=== PATIENT | male | born 1975 | race Caucasian/White ===

== ENCOUNTER 2025-03-12 08:44 | Inpatient (IN) | payer BC ==
--- OUTSIDE RECORDS SUMMARY | 2025-03-12 08:47 | XMS REPORT | Continuity of Care Document ---
Author Name Unknown Address [address] [facility] [place] [address] [facility] [email or web address] Address [address] [facility] [facility] [place] [address] Care Team Providers Care Private Household Worker Name Role Phone PCP, PATIENT DOES NOT HAVE A Primary Care Physic keith Unavailable RADIOLOGY Attending Clinician Unavailable Kev Fitzpatrick MD Attending Clinician + [phone] Pcp, Patient Does Not Have A Attending Clinician [facility] Sleep Lab Attending Clinician Jad Kimbrough MD Attending Clinician [phone] JAD CID Attending Clinician UnavailJAD Torres Attending Clinician UnavailKev Santos MD Attending Clinician + [phone] KEV FITZPATRICK Attending Clinician TRACEE Mak Attending Clinician Unavailable TRACEE FLOWER Attending Clinician Unavailable MILLY Attending Clinician Unavailable JOSIAH GARCIA Admitting Clinician Unavailable TRACEE FLOWER Admitting Clinician Unavailable MILLY Admitting Clinician Unavailable Payers Payer Name Policy Type Policy Number Effective Date Expirati on Date Source [facility] [id number] 2021 00:00:00 [place] [id number] 2021 00:00:00 Problems Condition Name Condition Details Condition Category Status Onset Date Resolution Date Last Treatment Date Treating Clinician Comments Source Poison malcolm dermatitis Poison malcolm dermatitis Diagnosis Active [facility] Essential hypertensi on Essential hypertensi on Problem Active [facility] Allergies, Adverse Reactions, Alerts Allergy Name Allergy Type Status Severity Reaction(s) Onset Date Inactive Date Treating Clinician Comments Source NO KNOWN ALLERGIE S Drug Class Active [facility] Social History Social Habit Start Date Stop Date Quantity Comments Source History of tobacco use Snuff User [facility] Tobacco use and exposure 2024-02-25 00:00:00 2024-02-25 00:00:00 User of smokeless tobacco [facility] Alcoholic beverage intake 2024-02-25 00:00:00 2024-02-25 00:00:00 Ex-drinker (finding) [facility] History of Social function 2024-02-25 00:00:00 2024-02-25 00:00:00 [facility] Sex assigned at 1975 00:00:00 1975 00:00:00 [facility] Smoking Status Start Date Stop Date Source Never smoked tobacco [facility] Medications Ordered Medication Name Filled Medication Name Start Date Stop Date Current Medication? Ordering Clinician Indication Dosage Frequency Signature (SIG) Comments Components Source iopamidol (ISOVUE 370-500 mL) injection 85 mL 02-10 17:00: 00 02-10 16:14 :00 No [id number] 85mL 85 mL, Intravenou s, ONCE, 1 dose, On Sun02/10/25 at 1200, Routine [facility] varenicline (CHANTIX STARTING MONTH BOX) 0.5 mg (11)- 1 mg (42) tablet 02-24 00:00: 00 Yes [id number] Take one 0.5mg tab by mouth once daily for 3 days, then one 0.5mg tab twice daily for 4 days, then one 1mg tab twice daily. [facility] amLODIPine 5 mg tablet 02-24 00:00: 00 Yes [id number] 5mg Take 1 tablet by mouth in the morning. [facility] iopamidol (ISOVUE 370-500 mL) injection 100 mL 02-02 09:45: 00 02-02 09:45 :00 No [id number] 100mL 100 mL, Intravenou s, ONCE, 1 dose, On 02/03/24 at 0445, Routine [facility] ketorolac (TORADOL) injection 30 mg 02-02 08:30: 00 02-02 07:31 :00 No 30mg 30 mg, Slow IV Push, ONCE, 1 dose, On Sun02/03/24 at 0330, Routine [facility] diphenhydrA MINE:lidoca ine 2% viscous:maa lox 1:1:1 (FIRST-MOUT HWASH BLM) oral suspension 15 mL 02-02 07:30: 00 02-02 07:31 :00 No 15mL 15 mL, Oral, ONCE, 1 dose, On 02/03/24 at 0230, Routine [facility] dicyclomine 20 mg tablet 02-02 00:00: 00 Yes [id number] 20mg Take 1 tablet by mouth every 6 (six) hours as needed for Abdominal pain. [facility] ondansetron (ZOFRAN) 4 mg tablet 02-02 00:00: 00 Yes [id number] 4mg Take 1 tablet by mouth every 8 (eight) hours as needed for Nausea and Vomiting (N/V). [facility] lisinopriL 40 mg tablet 10-11 00:00: 00 Yes [id number] 40mg Take 1 tablet by mouth daily. [facility] MethylPREDN ISolone MethylPREDN ISolone 2018-07 00:00: 00 Yes Anthony Francois 1 tablet with food or milk [facility] Lisinopril Lisinopril Yes Anthony Francois 1 tablet [facility] Vital Signs Vital Name Observation Time Observation Value Comments Kelly turner Systolic blood pressure 2024-02-25 19:17:00 159 mm[Hg] [facility] Diastolic blood pressure 2024-02-25 19:17:00 99 mm[Hg] [facility] Heart rate 2024-02-25 19:13:00 91 /min [facility] acute hospital Body temperature 2024-02-25 19:13:00 36.94 Sharda [facility] Body weight 2024-02-25 19:13:[address] [facility] BMI 2024-02-25 19:13:00 35.15 kg/m2 [facility] Systolic blood pressure 2024-02-03 09:55:00 139 mm[Hg] [facility] Diastolic blood pressure 2024-02-03 09:55:00 94 mm[Hg] [facility] Heart rate 2024-02-03 09:55:00 67 /min General acute hospital Body temperature 2024-02-03 09:55:00 36.72 Sharda [facility] Respiratory rate 2024-02-03 09:55:00 18 /min [facility] Oxygen saturation in Arterial blood by Pulse oximetry 2024-02-03 09:55:00 97 /min [facility] Body height 2024-02-03 07:02:[address] [facility] Body weight 2024-02-03 07:02:[address] [facility] BMI 2024-02-03 07:02:00 33.47 kg/m2 [facility] Procedures Procedure Date / Time Performed Performing Clinicia n Source CT ABDOMEN PELVIS W CONTRAST 2025-02-10 16:13:33 Requisition, Paper [facility] HB CREATININE SERUM/BLOOD FOR IMAGING 2025-02-10 15:59:00 Radiology [facility] SLEEP STUDY DATA REPORT 2024-03-04 19:48:37 Kev Fitzpatrick [facility] SLEEP LAB RESULTS 2024-03-04 19:47:33 Kev Fitzpatrick [facility] EKG-12 LEAD 2024-02-03 09:37:07 Tracee Flower [facility] URINALYSIS 2024-02-03 08:12:00 Tracee Flower [facility] COMP. METABOLIC PANEL (52156) 2024-02-03 07:12:00 Tracee Flower [facility] CBC WITH DIFF 2024-02-03 07:12:00 Tracee Flower [facility] LIPASE 2024-02-03 07:12:[address] [facility] Encounters Start Date/Time End Date/Time Encounter Type Admission Type Attending Clinicians Care Facility Care Department Encounter ID Source 2025-02-10 10:43:36 2025-02-10 23:59:00 Hospital Encounter R RADIOLOGY [facility] [id number] 350.1.13.10 [id number] [id number] [facility] 2024-03-04 00:00:00 2024-09-13 07:11:30 Orders Only Kev Fitzpatrick [facility] ([facility]) [id number] 350.1.13.10 [id number] [id number] [facility] 2024-03-04 00:00:00 2024-09-13 07:11:20 Orders Only Kev Fitzpatrick [facility] ([facility]) [id number] 350.1.13.10 4.2.7.2.686 [id number] [facility] 2024-03-05 00:00:00 2024-03-05 14:19:40 Telephone Pcp, Patient Does Not Have A [facility] 1.2.840.114 350.1.13.10 4.2.7.2.686 [id number] [facility] 2024-02-28 13:00:00 2024-02-28 13:15:00 Assistant Financial Accountant Visit [facility] Sleep Lab Jad Cid [facility] 1.2.840.114 350.1.13.10 4.2.7.2.686 [id number] [facility] 2024-02-28 13:00:00 2024-02-28 13:00:00 Outpatient JAD SPARKS [facility] [id number] [facility] 2024-02-25 14:30:00 2024-02-25 15:00:00 Office Visit Kev Fitzpatrick [facility] 1.2.840.114 350.1.13.10 4.2.7.2.686 [id number] [facility] 2024-02-25 14:30:00 2024-02-25 14:30:00 Outpatient KEV FUENTES [facility] [id number] [facility] 2024-02-03 01:59:00 2024-02-03 05:00:00 Emergency X TITUSPAYAMDESMONDTRACEE WAKILI [facility] ERT [id number] [facility] 2024-02-03 01:59:00 2024-02-03 05:00:00 Emergency Tracee Flower [facility] [id number] 350.1.13.10 4.2.7.2.686 [id number] [facility] 2021-11-08 10:15:00 2021-11-08 10:15:00 Outpatient KEV FUENTES [facility] [id number] [facility] 2021-11-08 10:15:00 2021-11-08 10:15:00 Outpatient KEV FUENTES [facility] [id number] [facility] 2021-10-18 09:45:00 2021-10-18 09:45:00 Outpatient KEV FUENTES [facility] [id number] [facility] 2021-10-18 09:45:00 2021-10-18 09:45:00 Outpatient Naila [facility] [id number] [facility] 2021-10-11 09:30:00 2021-10-11 09:30:04 Outpatient KEV FUENTES [facility] [id number] [facility] 2019-05-31 08:45:00 2019-05-31 08:45:00 Outpatient [facility] [id number] [facility] Results Test Description Test Time Test Comments Results Result Co mments Source [facility] w [id number] 16:55:50EXAM: CT ABDOMEN PELVIS WITH CONTRAST HISTORY: 50-year-old male complaining of abdominal pain COMPARISON: CT abdomen and pelvis 02/03/2024. TECHNIQUE AND FINDINGS: Contiguous axial imaging of the abdomen and pelvisstarting from from the level of the lung bases to the level of ?proximalthighs was performed after the administration of intravenous contrast.Coronal and sagittal reconstructions were obtained. ?Auto mA and/oriterative reconstruction were used to reduce radiation dose. FINDINGS:LOWER THORAX: The lungs bases are clear. No cardiomegaly. LIVER: No focal hepatic lesions. ?Normal contour. GALLBLADDER AND BILIARY TREE: No biliary ductal dilation. Diffusegallbladder wall thickening, measuring up to 1.1 cm. SPLEEN: No splenomegaly. PANCREAS: No ductal dilation or masses. ADRENAL GLANDS: No adrenal nodules. KIDNEYS: No hydronephrosis, stones, or masses. PERITONEUM AND RETROPERITONEUM: Nofree air or fluid. LYMPH NODES: No lymphadenopathy. GI TRACT: Mural wall thickening of the distal esophagus and gastric cardia.Gastric band in place. The appendix is unremarkable. PELVIS/BLADDER: Nonspecific urinary bladder wall thickening. VESSELS: Unremarkable. BONES AND SOFT TISSUES: No suspicious lytic or sclerotic bony lesions.[facility] Notes Date/Time Note Provider Source 2024-02-03 04:56:14 Awake, alert oriented X4, respiratory even and unlabored,skin w/d color appropriate for race, moves all ext well, pt encouraged to follow up with pcp and or return as needed Pt given printed and verbal discharge instructions regarding Calculus of gall bladder without cholecystitis without obstruction, Generalized abdominal pain patient verbralized understanding and signature obtained, patient denies any other concerns. Prescriptions provided Advised to seek medical attention for new/prolonged/worsening of symptoms, No adverse reaction to meds given in ER noted upon discharge Pt ambulated to the lobby with steady gait Dariana Delgado RN [facility] 2024-02-03 02:00:57 Pt states he is having gallbladder pain starting about 11pm last night. Bella Zapata RN [facility] 2024-02-03 01:55:00 Associated Order(s): EKG-12 Lead ROUTINE ONCE Pre-Procedure Diagnose(s): Generalized abdominal pain Post-Procedure Diagnose(s): Generalized abdominal pain [facility] Emergency Department Note Patient Name: Pushpa Aguillon Date of : 1975 48 year old male Treatment Room: [facility] Primary Care Physician: Kev Fitzpatrick Patient Escorted by: Self [9] Mode of Arrival: Personal means [1] EMS Treatment Prior to ED Arrival: POULTRY VACCINATOR treatment: None Travel and Exposure Screening: Symptoms Does patient have any of these symptoms?: (not recorded) Exposure Screening Has patient had contact with someone with a communicable disease in the last month?: (not recorded) Diseases exposed to:: (not recorded) Is Patient ?: (not recorded) Exposure Date: (not recorded) Chief Complaint: Chief Complaint Patient presents with Pain Gallbladder History of Present Illness: Pushpa Aguillon is a 48 year old male who presents to the ED with RUQ pain Since 11:00 PM last HS. Pain said to be "burning" severe and without known aggravating or relieving factors. Pt has similar pain about three years ago and was diagnosed with "gallbladder diease" History provided by: Patient, medical records and significant other park interpreter used: No Abdominal Pain Pain location: RUQ Pain quality: gnawing Pain radiates to: Does not radiate Pain severity: Moderate Onset quality: Gradual Duration: 3 hours Timing: Intermittent Chronicity: New Context: previous surgery Context: not alcohol use, not awakening from sleep, not diet changes, not eating, not medication withdrawal, not recent illness, not recent travel, not retching, not sick contacts, not suspicious food intake and not trauma Relieved by: None tried Worsened by: Nothing Ineffective treatments: None tried Associated symptoms: nausea Associated symptoms: no belching, no constipation, no diarrhea, no fever, no hematemesis, no hematochezia, no hematuria, no melena and no vomiting Risk factors: multiple surgeries and obesity Risk factors: not elderly, no NSAID use and no recent hospitalization Past Medical History/Immunizations: Past Medical History: Diagnosis Date Hypertension Morbid Obesity Tetanus received in last 5 years: Unknown Childhood immunizations: Up-to-date Allergies: No Known Allergies Past Social History: Tobacco Use Never Smokeless Tobacco: Current user of smokeless tobacco; Types: Snuff. Alcohol Use Not Currently. Drug Use Never. Sexual Activity Sexually active; Partners: Female; Control/Protection: Surgical. Past Surgical History: Past Surgical History: Procedure Laterality Date ARTHROSCOPIC MENISCAL REPAIR Left 2006 LAPAROSCOPIC ADJUSTABLE GASTRIC BANDING 2007 60 -70 lb weight loss LIVER LACERATION REPAIR 1980 Review of Systems: Review of Systems Constitutional: Negative. Negative for fever. HENT: Negative. Eyes: Negative. Respiratory: Negative. Breasts: Negative. Cardiovascular: Negative. Gastrointestinal: Positive for abdominal pain and nausea. Negative for abdominal distention, anal bleeding, blood in stool, constipation, diarrhea, hematemesis, hematochezia, melena, rectal pain and vomiting. Genitourinary: Negative. Negative for hematuria. Musculoskeletal: Negative. Skin: Negative. Neurological: Positive for weakness. Psychiatric/Behavioral: Negative. All other systems reviewed and are negative. Endocrine: Endocrine negative Physical Exam: ED Triage Vitals [02/03/24 0202] Weight 108.9 kg (240 lb) Actual or estimated Estimated by patient/family report Height 1.803 m (5' 11") BP (!) 161/97 Pulse 61 Resp 16 Temp 36.9 ?C (98.5 ?F) Temp source Oral SpO2 97 % Measured on Room air Physical Exam Vitals and nursing note reviewed. Constitutional: General: He is not in acute distress. Appearance: Normal appearance. He is well-developed. He is obese. He is not ill-appearing, toxic-appearing or diaphoretic. HENT: Head: Normocephalic and atraumatic. Nose: Nose normal. No congestion or rhinorrhea. Mouth/Throat: Mouth: Mucous membranes are moist. Pharynx: Oropharynx is clear. No oropharyngeal exudate or posterior oropharyngeal erythema. Eyes: General: No scleral icterus. Right eye: No discharge. Left eye: No discharge. Extraocular Movements: Extraocular movements intact. Conjunctiva/sclera: Conjunctivae normal. Pupils: Pupils are equal, round, and reactive to light. Cardiovascular: Rate and Rhythm: Normal rate and regular rhythm. Pulses: Normal pulses. Heart sounds: Normal heart sounds. No murmur heard. Pulmonary: Effort: Pulmonary effort is normal. No respiratory distress. Breath sounds: Normal breath sounds. No stridor. No wheezing, rhonchi or rales. Chest: Chest wall: No tenderness. Abdominal: General: Bowel sounds are normal. There is no distension. Palpations: Abdomen is soft. Tenderness: There is no abdominal tenderness. There is no right CVA tenderness, left CVA tenderness, guarding or rebound. Hernia: No hernia is present. Musculoskeletal: General: No swelling, tenderness, deformity or signs of injury. Normal range of motion. Cervical back: Normal range of motion. No rigidity or tenderness. Right lower leg: No edema. Left lower leg: No edema. Lymphadenopathy: Cervical: No cervical adenopathy. Skin: General: Skin is warm and dry. Capillary Refill: Capillary refill takes less than 2 seconds. Coloration: Skin is not jaundiced or pale. Findings: No bruising, erythema, lesion or rash. Neurological: General: No focal deficit present. Mental Status: He is alert and oriented to person, place, and time. Cranial Nerves: No cranial nerve deficit. Sensory: No sensory deficit. Motor: No weakness. Coordination: Coordination normal. Gait: Gait normal. Deep Tendon Reflexes: Reflexes normal. Psychiatric: Behavior: Behavior normal. Thought Content: Thought content normal. Judgment: Judgment normal. Radiology: CT ABDOMEN PELVIS W CONTRAST Preliminary Result EXAM: CT ABDOMEN PELVIS W CONTRAST HISTORY: 48 years-old Male: Abdominal pain, acute, nonlocalized, RUQ PAIN TECHNIQUE: Contiguous axial imaging from the level of the lung bases through the proximal thighs was performed with intravenous contrast. Coronal and sagittal reconstructions were obtained. COMPARISON: None FINDINGS: LOWER THORAX: The lung bases are clear aside from dependent, bibasilar atelectasis. No pleural or pericardial effusion. LIVER AND BILIARY: The liver is normal in size and contour. No focal hepatic lesion is seen. Possible tiny radiopaque gallstones in the dependent lumen versus folds. The gallbladder appears otherwise unremarkable. No intra or extrahepatic biliary ductal dilation is visualized. PANCREAS: Diffuse fatty infiltration of pancreas. No ductal dilation or masses are visualized. SPLEEN: The spleen appears unremarkable. ADRENAL GLANDS: No adrenal masses are seen. KIDNEYS, URETERS, AND BLADDER: Normal renal size, morphology, and enhancement. No solid masses. No stones or hydronephrosis. The bladder is partially collapsed, which limits evaluation. REPRODUCTIVE ORGANS: Possible prostatomegaly, the prostate measures 5 cm in transverse diameter. GI TRACT AND PERITONEUM: Changes of gastric band surgery is noted. The gastric band is in appropriate angle. Mild circumferential mural thickening of the distal esophagus and stomach pouch with no obvious perienteric stranding that could be related to gastroesophageal reflux. No dilation or bowel wall thickening is seen. The appendix appears unremarkable. No intra-abdominal free air or fluid collection is visualized. VESSELS: Portal, splenic, and superior mesenteric veins are patent. Visceral arteries are patent. No abdominal aortic aneurysm. LYMPH NODES: No lymphadenopathy. Prominent benign-appearing bilateral inguinal lymph nodes are likely reactive. BONES AND SOFT TISSUES: No aggressive osseous lesion. No fractures. The vertebral bodies are normal in height and alignment. IMPRESSION Cholelithiasis versus gallbladder wall fold. CBD is unremarkable. The gallbladder is otherwise appears unremarkable. Changes of gastric band. Preliminary Report Dictated by Resident: Celestina La Lab Results: Lab Results CBC WITH DIFF - Abnormal Result Value Ref Range WBC 6.96 4.20 - 10.70 10*3/?L RBC 4.81 4.26 - 5.52 10*6/?L HGB 14.9 12.2 - 16.4 g/dL HCT 42.0 38.4 - 49.3 % MCV 87.3 81.7 - 95.6 fL MCH 31.0 26.1 - 32.7 pg MCHC 35.5 (*) 31.2 - 35.0 g/dL RDW-SD 37.3 (*) 38.5 - 51.6 fL RDW-CV 11.6 (*) 12.1 - 15.4 % PLT 183 150 - 328 10*3/?L MPV 11.2 9.8 - 13.0 fL NRBC/100 WBC 0.0 0.0 - 10.0 /100 WBCs NRBC x10 3 <0.01 10*3/?L GRAN MAT (NEUT) % 64.7 % IMM GRAN % 0.40 % LYMPH % 22.7 % MONO % 7.5 % EOS % 3.6 % BASO % 1.1 % GRAN MAT x10 3 (ANC) 4.50 1.99 - 6.95 10*3/uL IMM GRAN x10 3 0.03 0.00 - 0.06 10*3/uL LYMPH x10 3 1.58 1.09 - 3.23 10*3/uL MONO x10 3 0.52 0.36 - 1.02 10*3/uL EOS x10 3 0.25 0.06 - 0.53 10*3/uL BASO x10 3 0.08 0.01 - 0.09 10*3/uL COMP. METABOLIC PANEL ([id number]) - Abnormal NA 138 135 - 145 mmol/L K 3.9 3.5 - 5.0 mmol/L CL 106 98 - 108 mmol/L CO2 TOTAL 23 23 - 31 mmol/L AGAP 9 2 - 16 BUN 19 7 - 23 mg/dL GLUCOSE 121 (*) 70 - 110 mg/dL CREATININE 1.01 0.60 - 1.25 mg/dL TOTAL BILI 0.7 0.1 - 1.1 mg/dL CALCIUM 8.6 8.6 - 10.6 mg/dL T PROTEIN 6.9 6.3 - 8.2 g/dL ALBUMIN 4.1 3.5 - 5.0 g/dL ALK PHOS 88 34 - 122 U/L ALTv 20 5 - 50 U/L AST(SGOT) 29 13 - 40 U/L eGFR 92.3 mL/min/1.73m2 LIPASE - Normal LIPASE 126 0 - 220 U/L URINALYSIS APPEARANCE Clear Clear COLOR Yellow Yellow PH 5.0 4.8 - 8.0 SP GRAVITY 1.023 1.003 - 1.030 GLU U QUAL Normal Normal BLOOD Negative Negative KETONES Negative Negative PROTEIN Negative Negative UROBILIN Normal Normal BILIRUBIN Negative Negative NITRITE Negative Negative LEUK ILIR Negative Negative RBC/HPF 1 0 - 3 HPF WBC/HPF <1 0 - 5 HPF BACTERIA Negative Negative SQ EPITH <1 HPF Orders and Treatments: Orders Placed This Encounter Procedures CT ABDOMEN PELVIS W CONTRAST CBC with Diff CMP URINALYSIS LIPASE Orders Placed This Encounter Medications diphenhydrAMINE:lidocaine 2% viscous:maalox 1:1:1 (FIRST-MOUTHWASH BLM) oral suspension 15 mL ketorolac (TORADOL) injection 30 mg iopamidol (ISOVUE 370-500 mL) injection 100 mL dicyclomine 20 mg tablet ondansetron (ZOFRAN) 4 mg tablet First Provider Eval: ED Events Date/Time Event User Comments 02/03/24203 Medical Screening Begins TRACEE FLOWER MD -- 02/03/24203 First Provider Evaluation TRACEE FLOWER MD -- ED COURSE Diagnosis/Impression as of 02/03/24 0436 Generalized abdominal pain Calculus of gallbladder without cholecystitis without obstruction Procedures: EKG-12 Lead ROUTINE ONCE Date/Time: 02/03/2024 2:06 AM Performed by: Tracee Flower MD Authorized by: Tracee Flower MD ECG interpreted by ED Physician in the absence of a web press operator helper offset: yes Previous ECG: Previous ECG: Unavailable Interpretation: Interpretation: abnormal Rate: ECG rate: 51 ECG rate assessment: bradycardic Rhythm: Rhythm: sinus bradycardia Ectopy: Ectopy: none QRS: QRS axis: Normal QRS intervals: Normal QRS conduction: normal ST segments: ST segments: Normal T waves: T waves: normal Q waves: Abnormal Q-waves: not present MDM: Medical Decision Making Pushpa Aguillon is a 48 year old male whopresents to the ED with RUQ pain Problems Addressed: Calculus of gallbladder without cholecystitis without obstruction: acute illness or injury Details: Will refer to PCP/General Surgeon for further evaluation an dmanagement Amount and/or Complexity of Data Reviewed Labs: ordered. Radiology: ordered. Decision-making details documented in ED Course. ECG/medicine tests: ordered and independent interpretation performed. Decision-making details documented in ED Course. Risk Prescription drug management. Risk Details: Will refer to PCP/General Surgery Flowsheet Documentation: Scoring Tools: No data recorded Disposition/Condition: ED Disposition ED Disposition Disch - Home Condition Stable Comment -- Discharge Medications: Patient's Medications START taking these medications DICYCLOMINE 20 MG TABLET Take 1 tablet by mouth every 6 (six) hours as needed for Abdominal pain. ONDANSETRON (ZOFRAN) 4 MG TABLET Take 1 tablet by mouth every 8 (eight) hours as needed for Nausea and Vomiting (N/V). CONTINUE taking these medications which have NOT CHANGED LISINOPRIL 40 MG TABLET Take 1 tablet by mouth daily. START taking Modified Medications as Prescribed No medications on file STOP taking these medications No medications on file Follow-up: Electronically signed by: Tracee Flower MD 02/03/24 0437 [facility]
[2025-03-12] MEDS ORDERED: HYDROMORPHONE HCL 0.5 MG/0.5 ML INJ ONE (09:04)
[2025-03-12] MEDS ORDERED: ONDANSETRON 4 MG/2 ML VIAL ONE (09:04)
[2025-03-12] MEDS ORDERED: NA CHLORIDE 0.9% 1,000 ML ONE (09:05)
[2025-03-12 09:23] LABS: Absolute Lymphocytes (CBC) 1.5 K/uL (0.7-4.9); Hematocrit 44.8 % (39.6-49.0); Hemoglobin 15.0 g/dL (13.6-17.9); MCH 29.6 pg (27.0-35.0); MCHC 33.6 g/dL (32.0-36.0); MCV 88.2 fL (80-100); MPV 8.6 fL (7.6-11.3); Nucleated RBC Absolute Count 0.0 (0-0); Nucleated Red Blood Cells % 0.0 % (0-0); RBC Red Blood Cell Count 5.08 M/uL (4.33-5.43); White Blood Count 8.20 thou/uL (4.3-10.9)
[2025-03-12 09:40] LABS: ALT/SGPT 30.0 U/L (16-61); AST/SGOT 14.0 U/L (15-37); Albumin 3.9 g/dL (3.4-5.0); Albumin/Globulin Ratio 1.3 (1.1-1.8); Alkaline Phosphatase 71.0 U/L (45-117); Anion Gap 6.8 mEq/L (5.0-15.0); BUN Blood Urea Nitrogen 17.0 mg/dL (7-18); Globulin 3.1 g/dL (2.3-3.5); Glucose Level 112.0 mg/dL (74-106); Lipase 42.0 U/L (13-75); Potassium 4.8 mEq/L (3.5-5.1)
--- NOTE | 2025-03-12 09:45 | EDPHYS ---
Physician Documentation [facility] Name: Khang Aguillon Age: 50 yrs Sex: Male : 1975 Arrival Date: 03/12/2025 Time: 08:44 Bed 4 Private MD: ED Physician Roel Turner HPI: 03/12 09:31 This 50 yrs old Male presents to ER via Ambulatory with complaints of Abdominal Pain, ms3 Nausea. 09:31 50-year-old male with past medical history of hypertension presents emergency il3 department for right upper quadrant abdominal pain that began at 2 AM. Patient states the pain is an 8/10 described as a hot cold burning through his stomach. Patient denies any alleviating or inciting factors. Patient endorses nausea, vomiting, fevers, chills.. Historical: - Allergies: :29 No Known Allergies; bp - Immunization history:: Adult Immunizations up to date. - Infectious Disease History:: Denies. - Social history:: Smoking status: Patient denies any tobacco usage or history of. ROS: 09:31 Constitutional: Negative for fever, and chills. Cardiovascular: Negative for chest ms3 pain, and palpitations. Respiratory: Negative for shortness of breath, cough, wheezing, and pleuritic chest pain, 09:31 MS/Extremity: Negative for injury and deformity, Skin: Negative for injury, rash, and discoloration, 09:31 Abdomen/GI: Positive for abdominal pain, nausea and vomiting, Exam: 09:31 Constitutional: This is a well developed, well nourished patient who is awake, alert, ms3 and in no acute distress. Chest/axilla: Normal chest wall appearance and motion. Nontender with no deformity. Cardiovascular: Regular rate and rhythm with a normal S1 and S2. No gallops, murmurs, or rubs. Normal PMI, no JVD. No pulse deficits. Respiratory: Lungs have equal breath sounds bilaterally, clear to auscultation and percussion. No rales, rhonchi or wheezes noted. No increased work of breathing, no retractions or nasal flaring. 09:31 Skin: Warm, dry with normal turgor. Normal color with no rashes, no lesions, and no evidence of cellulitis. 09:31 Abdomen/GI: Inspection: abdomen appears normal, Bowel sounds: normal, Palpation: moderate abdominal tenderness, in the right upper quadrant, Vital Signs: 08:50 BP 168 / 96; Pulse 46; Resp 15; Temp 98; Pulse Ox 100% ; Weight 108.86 kg; Height 6 ft. bp 0 in. ; 09:37 BP 155 / 95; Pulse 51; Resp 16; Pulse Ox 97% on R/A; Pain 5/10; ar8 09:45 Pain 5/10; ar8 11:02 BP 165 / 87; Pulse 56; Resp 16; Pulse Ox 97% on R/A; ph 12:08 BP 139 / 74; Pulse 50; Resp 15; Pulse Ox 97% on R/A; ar8 08:50 Body Mass Index 32.55 (108.86 kg, 182.88 cm) bp 09:37 Pain Scale: Adult ar8 09:45 Pain Scale: Adult ar8 MDM: 08:48 Medical Screening Exam initiated ms3 09:30 Management of patient was discussed with the following: Unclaimed Property Manager: Dr Hernandez- Check ms3 LFTs. Does not need repeat GB US. Liquid diet today and NPO after midnight. 09:31 Differential diagnosis: Nonspecific abd pain, gastritis, cholecystitis, pancreatitis. ms3 09:45 Data reviewed: vital signs, nurses notes, lab test result(s), and as a result, I will ms3 discharge patient. Consideration of Admission/Observation Patient was admitted/placed on observation. I considered the following discharge prescriptions or medication management in the emergency department Medications were administered in the Emergency Department. See MAR. External Records Reviewed: Outpatient radiology: MRCP performed 03/11/2025 without pathologic biliary tree dilatation. Care significantly affected by the following chronic conditions: Hypertension. Counseling: I had a detailed discussion with the patient and/or guardian regarding the historical points, exam findings, and any diagnostic results supporting the discharge/admit diagnosis, lab results, the need for further work-up and treatment in the hospital. ED course: Discussed case with hospitalist team and they accept patient. Discussed plan for admission, liquid diet, n.p.o. after midnight with the patient and his and they understand agree with plan. All questions were answered.. 03/12 08:47 Order name: CBC with Diff; Complete Time: 09:42 ms3 03/12 08:47 Order name: CMP; Complete Time: 09:42 ms3 03/12 08:47 Order name: Lipase; Complete Time: 09:42 ms3 03/12 10:12 Order name: CBC with Automated Diff EDMS 03/12 10:12 Order name: CBC with Automated Diff EDMS 03/12 10:12 Order name: CBC with Automated Diff EDMS 03/12 10:12 Order name: CBC with Automated Diff EDMS 03/12 10:12 Order name: Comprehensive Metabolic Panel EDMS 03/12 10:12 Order name: Comprehensive Metabolic Panel EDMS 03/12 10:12 Order name: Comprehensive Metabolic Panel EDMS 03/12 10:13 Order name: Comprehensive Metabolic Panel EDMS 03/12 08:47 Order name: IV Saline Lock; Complete Time: 09:07 ms3 03/12 08:47 Order name: Labs collected and sent; Complete Time: 09:07 ms3 Administered Medications: 09:10 Drug: Ondansetron IVP 4 mg IVP once; over 2 minutes Route: IVP; Site: right antecubital;ar8 09:45 Follow up: Response: No adverse reaction; Nausea is decreased ar8 09:10 Drug: NS 0.9% IV 1000 ml IV at 1 bolus Per protocol; to be given as a bolus over 60 ar8 minutes Route: IV; Rate: 1 bolus; Site: right antecubital; 10:37 Follow up: IV Status: Completed infusion; IV Intake: 1000ml ar8 09:12 Drug: HYDROmorphone IVP 0.5 mg IVP once Route: IVP; Infused Over: 4 mins; Site: right ar8 antecubital; 09:45 Follow up: Pain 5/10 Adult; Response: No adverse reaction; Pain is decreased ar8 10:03 Drug: Piperacillin-Tazobactam IVPB 3.375 grams IVPB once over 60 mins; (mix in NS 100 bp mL) Route: IVPB; Infused Over: 60 mins; Site: right antecubital; 11:10 Follow up: Response: No adverse reaction; IV Status: Completed infusion; IV Intake: ar8 100ml 10:54 Drug: Hydrocodone-Acetaminophen PO (7.5 mg-325 mg) 1 tabs PO once Route: PO; bp 12:15 Follow up: Response: No adverse reaction ar8 Disposition Summary: 03/12/25 09:44 Hospitalization Ordered Notes: Hospitalization Status: Inpatient Admission ms3 Provider: Bhavesh Shukla ms3 Location: Telemetry/MedSurg (Inpatient) ms3 Condition: Stable ms3 Problem: new ms3 Symptoms: are unchanged ms3 Bed/Room Type: Standard ms3 Room Assignment: 414(03/12/25 11:05) bc6 Diagnosis - Acute cholecystitis ms3 Forms: - Medication Reconciliation Form ms3 - SBAR form ms3 - Leadership Thank You Letter ms3 Signatures: Dispatcher [employer] EDRuddy Morrison, RN RN Roel Turner DO DO ms3 Rosemarie Adler bc6 Tacho Horton RN RN ar8 Corrections: (The following items were deleted from the chart) 11: 09:44 ms3 6
--- NOTE | 2025-03-12 09:45 | ER ---
Nurse's Notes [facility] Name: Khang Aguillon Age: 50 yrs Sex: Male : 1975 Arrival Date: 03/12/2025 Time: 08:44 Bed 4 Private MD: Diagnosis: Acute cholecystitis Presentation: 03/12 08:50 Chief complaint: Patient states: RUQ PAIN SINCE 0200 "GALLBLADDER FLARE UP". bp Coronavirus screen: At this time, the client does not indicate any symptoms associated with coronavirus-19. Ebola Screen: No symptoms or risks identified at this time. Initial Sepsis Screen: Does the patient meet any 2 criteria? No. Patient's initial sepsis screen is negative. Does the patient have a suspected source of infection? No. Patient's initial sepsis screen is negative. Risk Assessment: Do you want to hurt yourself or someone else? Patient reports no desire to harm self or others. Onset of symptoms was March 12, 2025 at 02:00. 08:50 Method Of Arrival: Ambulatory bp 08:50 Acuity: CHRISTOPHER 3 bp Triage Assessment: 08:50 General: Appears in no apparent distress. uncomfortable, Behavior is calm, cooperative, bp appropriate for age. Pain: Complains of pain in abdomen. EENT: No deficits noted. Neuro: No deficits noted. Cardiovascular: No deficits noted. Respiratory: No deficits noted. GI: Reports upper abdominal pain. : No signs and/or symptoms were reported regarding the genitourinary system. Derm: No deficits noted. Musculoskeletal: No deficits noted. Historical: - Allergies: 09:29 No Known Allergies; bp - Immunization history:: Adult Immunizations up to date. - Infectious Disease History:: Denies. - Social history:: Smoking status: Patient denies any tobacco usage or history of. Screenin:00 [facility] ED Fall Risk Assessment (Adult) History of falling in the last 3 months, ar8 including since admission No falls in past 3 months (0 pts). Abuse screen: Denies threats or abuse. Nutritional screening: No deficits noted. Tuberculosis screening: No symptoms or risk factors identified. 09:00 [facility] ED Fall Risk Assessment (Adult) Confusion or Disorientation No (0 pts) ar8 Intoxicated or Sedated No (0 pts) Impaired Gait No (0 pts) Mobility Assist Device Used No (0 pt) Altered Elimination No (0 pt) Score/Fall Risk Level 0 - 2 = Low Risk Oriented to surroundings, Maintained a safe environment. Assessment: 08:50 General: SEE TRIAGE NOTE. bp Vital Signs: 08:50 BP 168 / 96; Pulse 46; Resp 15; Temp 98; Pulse Ox 100% ; Weight 108.86 kg; Height 6 ft. bp 0 in. ; 09:37 BP 155 / 95; Pulse 51; Resp 16; Pulse Ox 97% on R/A; Pain 5/10; ar8 09:45 Pain 5/10; ar8 11:02 BP 165 / 87; Pulse 56; Resp 16; Pulse Ox 97% on R/A; ph 12:08 BP 139 / 74; Pulse 50; Resp 15; Pulse Ox 97% on R/A; ar8 08:50 Body Mass Index 32.55 (108.86 kg, 182.88 cm) bp 09:37 Pain Scale: Adult ar8 09:45 Pain Scale: Adult ar8 ED Course: 08:46 Patient arrived in ED. cj3 08:47 Roel Turner DO is Attending Physician. ms3 08:50 Arm band placed on. bp 08:53 Ruddy Devi, NADYA is Primary Nurse. bp 09:00 Bed in low position. Call light in reach. Side rails up X2. Provided Education on: plan ar8 of care. 09:00 No provider procedures requiring assistance completed. Inserted saline lock: 22 gauge ar8 in right antecubital area, using aseptic technique. Blood collected. Flushed with 10 mL NS. 09:29 Triage completed. bp 09:44 Bhavesh Shukla MD is Hospitalizing Provider. ms3 12:15 Patient admitted, IV remains in place. ar8 Administered Medications: 09:10 Drug: Ondansetron IVP 4 mg IVP once; over 2 minutes Route: IVP; Site: right antecubital;ar8 09:45 Follow up: Response: No adverse reaction; Nausea is decreased ar8 09:10 Drug: NS 0.9% IV 1000 ml IV at 1 bolus Per protocol; to be given as a bolus over 60 ar8 minutes Route: IV; Rate: 1 bolus; Site: right antecubital; 10:37 Follow up: IV Status: Completed infusion; IV Intake: 1000ml ar8 09:12 Drug: HYDROmorphone IVP 0.5 mg IVP once Route: IVP; Infused Over: 4 mins; Site: right ar8 antecubital; 09:45 Follow up: Pain 5/10 Adult; Response: No adverse reaction; Pain is decreased ar8 10:03 Drug: Piperacillin-Tazobactam IVPB 3.375 grams IVPB once over 60 mins; (mix in NS 100 bp mL) Route: IVPB; Infused Over: 60 mins; Site: right antecubital; 11:10 Follow up: Response: No adverse reaction; IV Status: Completed infusion; IV Intake: ar8 100ml 10:54 Drug: Hydrocodone-Acetaminophen PO (7.5 mg-325 mg) 1 tabs PO once Route: PO; bp 12:15 Follow up: Response: No adverse reaction ar8 Medication: 08:50 VIS not applicable for this client. bp Intake: 10:37 IV: 1000ml; Total: 1000ml. ar8 11:10 IV: 100ml; Total: 1100ml. ar8 Outcome: 09:44 Decision to Hospitalize by Provider. ms3 12:17 Admitted to Med/surg accompanied by tech, family with patient, via wheelchair, room ar8 414, with chart, Report called to faxed to 4th floor 12:17 Condition: stable 12:17 Discharge instructions given to instructed on reason for admission 12:20 Patient left the ED. ar8 Signatures: Angeles Roland, RN Ruddy Brown ph RN RN Roel Davidson DO DO ms3 Latasha Cordova cj3 Tacho Horton RN RN ar8
[2025-03-12] MEDS ORDERED: NA CHLORIDE 0.9% 100 ML ONE (09:58)
[2025-03-12] MEDS ORDERED: PIPERACIL/TAZO 3.375 GM VIAL IV ONE (09:59)
[2025-03-12] MEDS ORDERED: ACETAMINOPHEN 325 MG TABLET PO PRN (10:08)
[2025-03-12] MEDS ORDERED: ONDANSETRON 4 MG/2 ML VIAL IV PRN (10:08)
[2025-03-12] MEDS ORDERED: HYDROCODONE/APAP 7.5/325 MG TAB ONE (10:50)
[2025-03-12 12:44] VITALS: BMI 32.5
[2025-03-12] MEDS: NA CHLORIDE 0.9% 1,000 ML IV SCH (13:07)
[2025-03-12] MEDS: MORPHINE 2 MG/ML SYR IV PRN (13:13)
--- NOTE | 2025-03-12 13:30 | CON ---
Date of Consultation: 03/12/2025 History Of Present Illness: 50-year-old patient who came to us complaining of epigastric right upper quadrant pain radiating to the back, associated with nausea and vomiting, started about 2 o'clock th is morning after eating Iranian food last night. The patient has been on the schedule for cholecyste ctomy next week, but he just developed this pain last night. He recently has been worked up for chol elithiasis with ultrasound and also MRCP was obtained to rule out choledocholithiasis. Review of Systems: Nausea, vomiting present with abdominal pain. No dysuria, hematuria, hematochezia, or melena. No ja undice. Ten points, otherwise, unremarkable. Allergies: NONE. Social History: He does not smoke. He does not drink alcohol. Family History: Noncontributory. Medications: He does not recall the name of them right now. Physical Examination: Vital Signs: Reviewed. General: Patient is awake and alert. HEENT: Pupils are equal and reactive. Anicteric. Neck: Supple. Chest: Clear. Heart: S1, S2. Abdomen: Epigastric right upper quadrant tenderness. Vuong sign positive. The rest of the abdomen is soft and benign. Pelvis: Stable. Genitalia: Deferred. Rectal: Deferred. Extremities: Good capillary refill. Laboratory Data: WBC count is 8.2, hemoglobin of 15, platelets of 223, potassium is 4.8, glucose 112 . Previous ultrasound of the abdomen, a few days ago, 03/05/2025, shows extensive cholelithiasis, fa tty liver MRCP done yesterday shows cholelithiasis, gallbladder wall contracted partially. Liver, no focal lesions. No pathological biliary tree dilatation. Assessment: This 50-year-old patient with acute cholecystitis, symptomatic cholelithiasis. Benefits , alternatives, and risks of laparoscopic possible open cholecystectomy fully explained, which includ e, but not limited to, infection, bleeding, damage to adjacent structures, anesthesia complication, c holedocholithiasis, bile leak, pancreatitis, NH, and even . He also understands this may not re lieve any symptoms, he might need more than one surgical intervention. He understood, signed a conse nt. ANGÉLICA/ROHAN Voice ID: [id number] Report ID: [id number]
--- NOTE | 2025-03-12 14:26 | P.HP ---
Certification for Inpatient Patient admitted to: Observation With expected LOS: <2 Midnights Patient will require the following post-hospital care: None Practitioner: I am a practitioner with admitting privileges, knowledge of patient current condition, hospital course, and medical plan of care. Services: Services provided to patient in accordance with Admission requirements found in Title 42 Section 412.3 of the Code of Federal Regulations Patient History Date of Service: 03/12/25 History of Present Illness: 50-year-old male with history of hypertension, hyperlipidemia, gout presents the emergency department chief complaint of epigastric pain. He has been dealing with issues with his gallbladder over the course of the last 1 and half years but the episodes becoming more frequent and worse in severity. He has been seeing Dr. Hernandez outpatient, he recently had an abdominal ultrasound on 03/05 which showed extensive cholelithiasis, MRCP was performed yesterday on 03/11 which showed no pathologic biliary tree dilatation, cholelithiasis. Gallbladder appears contracted partially. Labs were obtained in the ER which showed normal LFTs and were otherwise essentially unremarkable. Given his severe ongoing pain he will be admitted for suspected acute cholecystitis with plan for operative management. Allergies No Known Allergies Allergy (Unverified 03/12/25 10:28) Home Medications: Carvedilol [Coreg] 1 tab PO BID 03/12/25 lisinopriL [Lisinopril] 1 tab PO DAILY 03/12/25 - Past Medical/Surgical History Has patient received pneumonia vaccine in the past: No Diabetic: No -: HTN -: Gout -: Hyperlipidemia -: Liver Sx - Family History Father -: Hypertension, Diabetes Mother -: Diabetes - Social History Smoking Status: Former smoker Alcohol use: Yes CD- Drugs: No Caffeine use: No Place of Residence: Home Review of Systems 10-point ROS is otherwise unremarkable Gastrointestinal: Nausea, Abdominal Pain Physical Examination - Vital Signs Temperature: 98 F Blood Pressure: 159/95 Pulse: 47 Respirations: 18 Pulse Ox (%): 98 - Physical Exam General: Alert, In no apparent distress, Oriented x3 HEENT: Atraumatic, PERRLA, EOMI Neck: Supple, 2+ carotid pulse no bruit, No LAD Respiratory: Clear to auscultation bilaterally, Normal air movement Cardiovascular: Regular rate/rhythm, Normal S1 S2 Gastrointestinal: Normal bowel sounds, Tenderness (Moderate right upper quadrant tenderness) Musculoskeletal: No tenderness Integumentary: No rashes Neurological: Normal gait, Normal speech, Normal strength at 5/5 x4 extr, Normal affect - Studies Laboratory Data (last 24 hrs) 03/12/25 03/12/25 09:00 09:00 WBC 8.20 Hgb 15.0 Hct 44.8 Plt Count 223 Sodium 140 Potassium 4.8 BUN 17 Creatinine 1.28 Glucose 112 H Total Bilirubin 0.8 AST 14 L ALT 30 Alkaline Phosphatase 71 Lipase 42 Assessment and Plan - Plan Assessment: Acute cholecystitis Hypertension Hyperlipidemia Gout Plan: Acute cholecystitis Clear liquid diet for now N.p.o. after midnight empiric antibiotics, as needed pain medications and antiemetics General Surgery consultation, plan for cholecystectomy tomorrow morning Hypertension Hyperlipidemia Gout Continue home medications, hold carvedilol given bradycardia DVT PPX: SCD Code status: Full code Discharge Plan: Home Plan to discharge in: 24 Hours - Advance Directives Does patient have a Living Will: No Does patient have a Durable POA for Healthcare: No Critical Care: No Time Spent Managing Pts Care (In Minutes): 64
[2025-03-12] MEDS: PIPER TAZO 3.375 GM in NA CHLORIDE 0.9% 100 ML IV SCH (16:10)
[2025-03-12] MEDS: CALCIUM CARBONATE CHEW 500MG TAB PO PRN (22:03)
[2025-03-13 06:26] LABS: Absolute Lymphocytes (CBC) 1.3 K/uL (0.7-4.9); Hematocrit 39.2 % (39.6-49.0); Hemoglobin 13.7 g/dL (13.6-17.9); MCH 30.5 pg (27.0-35.0); MCHC 35.0 g/dL (32.0-36.0); MCV 87.3 fL (80-100); MPV 8.4 fL (7.6-11.3); Nucleated RBC Absolute Count 0.0 (0-0); Nucleated Red Blood Cells % 0.1 % (0-0); RBC Red Blood Cell Count 4.49 M/uL (4.33-5.43); White Blood Count 5.70 thou/uL (4.3-10.9)
[2025-03-13 06:42] LABS: ALT/SGPT 31.0 U/L (16-61); AST/SGOT 18.0 U/L (15-37); Albumin 3.4 g/dL (3.4-5.0); Albumin/Globulin Ratio 1.3 (1.1-1.8); Alkaline Phosphatase 59.0 U/L (45-117); Anion Gap 7.3 mEq/L (5.0-15.0); BUN Blood Urea Nitrogen 11.0 mg/dL (7-18); Globulin 2.6 g/dL (2.3-3.5); Glucose Level 104.0 mg/dL (74-106); Potassium 4.3 mEq/L (3.5-5.1)
[2025-03-13 06:45] LABS: ALT/SGPT 34.0 U/L (16-61); AST/SGOT 18.0 U/L (15-37); Albumin 3.4 g/dL (3.4-5.0); Albumin/Globulin Ratio 1.3 (1.1-1.8); Alkaline Phosphatase 59.0 U/L (45-117); Bilirubin Indirect, Calculated 2.0 mg/dL (0.2-0.8); Globulin 2.6 g/dL (2.3-3.5)
[2025-03-13] MEDS ORDERED: MIDAZOLAM HCL 2 MG/2 ML INJ ONE (12:26)
[2025-03-13] MEDS ORDERED: ONDANSETRON 4 MG/2 ML VIAL ONE (12:26)
[2025-03-13] MEDS ORDERED: FENTANYL CITR 100 MCG/2 ML ONE (12:26)
[2025-03-13] MEDS ORDERED: ROCURONIUM 50 MG/5 ML VIAL IV ONE (12:26)
[2025-03-13] MEDS ORDERED: LIDOCAINE 1% MPF 5 ML VIAL ONE (12:26)
[2025-03-13] MEDS ORDERED: GLYCOPYRROLATE 0.2 MG/ML SYR ONE ×2 (12:27→13:38)
[2025-03-13] MEDS ORDERED: MORPHINE 10 MG/ML VIAL ONE (13:20)
[2025-03-13] MEDS: NA CHLORIDE 0.9% 1,000 ML ONE (13:25)
[2025-03-13] MEDS ORDERED: NEOSTIGMINE 1 MG/ML -10 ML VIAL ONE (13:38)
--- NOTE | 2025-03-13 13:42 | P.BOP ---
Preoperative diagnosis: acute cholecystitis, symptomatic cholelithiasis Postoperative diagnosis: same plus intrabdominal adhesions Primary procedure: 1. Laparoscopic cholecystectomy Secondary procedure: 2. Laparoscopic lysis of adhesions Estimated blood loss: <20cc Specimen: gb Findings: multiple intrabdominal adhesions , hx of laparotomies Anesthesia: General Complications: None Transferred to: Recovery Room Condition: Good
[2025-03-13] MEDS: HYDROMORPHONE HCL 0.5 MG/0.5 ML INJ ONE ×3 (14:07→14:24)
--- NOTE | 2025-03-13 14:31 | OP ---
Date of Procedure: 03/13/2025 Surgeon: Tal Hernandez MD Preoperative Diagnoses: Acute cholecystitis, symptomatic cholelithiasis, status post MRCP. Postoperative Diagnoses: Acute cholecystitis, symptomatic cholelithiasis, status post MRCP plus exte nsive intraabdominal adhesions. Procedures: 1. Laparoscopic assisted cholecystectomy. 2. Laparoscopic lysis of adhesions. Estimated Blood Loss: Less than 20 cc. Specimen: Gallbladder. Findings: The patient has multiple intraabdominal adhesions. He has a midline incision on the ventr al region, again that may have contributed to all those adhesions. We spent about half the time just doing adhesions with the LigaSure in order for us to start the gallbladder surgery. Anesthesia: General plus local. Indications: This is a case of a male, who came to us with acute abdominal pain, acute cholecystitis , symptomatic cholelithiasis, had an ultrasound, MRCP done previously due to dilatation of the common bile duct. No stones seen. The patient was booked for laparoscopic cholecystectomy, but yesterday he came with pain once again after eating some Somali food. So we advised him to have it done as so on as possible. The benefits, alternatives, and risks of laparoscopic possible open cholecystectomy fully explained, which include, but not limited to, infection, bleeding, damage to adjacent structure s, anesthesia complication, choledocholithiasis, bile leak, pancreatitis, MD, and even . He als o understands this may not relieve any symptoms, he might need more than one surgical intervention. He understood, signed a consent. Description Of Procedure: The patient was brought to the operating room, placed in supine position. Anesthesia was induced without complication. Abdominal area was prepped and draped in sterile fashi on. Local anesthesia was applied followed by sharp incision of the skin in the infraumbilical region . Incision was carried down to fascia, which was opened under direct vision. Peritoneum was encount ered, opened under direct vision. Vicryl #1 placed inside the fascia. Miranda trocar was carefully i ntroduced. Pneumoperitoneum was obtained. We noticed there were extensive amount of adhesions in th e right upper quadrant and in the epigastric ventral region. Patient has history of midline laparoto mies. So, we placed a 5 mm trocar on the lateral side right upper quadrant and then with that and wi th the help of LigaSure, we proceeded to do lysis of adhesions, took about half the time to clear all that area. Then, after that, we put 5 mm trocars and 2 more in the right upper quadrant. This allo wed me to visualize the edge of the gallbladder. Once again, omental adhesions to the gallbladder an d even stomach adhesions of the gallbladder were released with the help of LigaSure. The gallbladder was distended, so I used an Endo needle to deflate the gallbladder partially, then removed the needl e under direct visualization and put a grasper in the fundus of the gallbladder, another grasper in t he infundibulum, retracting the gallbladder in the inferolateral fashion, exposed the triangle of Sukhi ot, obtaining critical view. Needle was already removed. At that moment, I proceeded to identify th e cystic duct and cystic artery circumferentially and a connection between those and the gallbladder were clearly identified. I proceeded to ligate those by using at least 3 clips proximal, 1 clip dist al, ligation in the middle. Same was done with the cystic artery. No bile leak. No bleeding. Gall bladder was removed from liver using Bovie cauterizer and removed from abdominal cavity using an Endo Catch through the umbilical incision. Area was inspected once again. Also, the area of lysis of adh esions was inspected with no bleeding. At that moment, I proceeded to leave a KOJO drain due to all th e inflammation in that area and exited that KOJO drain through one of the trocar sites. The KOJO drain w as secured in place with 3-0 nylon. At that moment, I proceeded to remove the trocars under direct v ision. Deflated the pneumoperitoneum. Closed the fascia with #1 Vicryl, irrigated subcutaneous tiss ue, closed that with 3-0 chromic, and the skin with alayna. Sponge counts and instrument counts wer e correct. Patient tolerated the procedure well. Patient was sent to recovery in stable condition. ANGÉLICA/ROHAN Voice ID: [id number] Report ID: [id number]
[2025-03-13] MEDS: HYDRALAZINE HCL 20 MG/ML VIAL ONE (14:36)
[2025-03-13] MEDS: MORPHINE 2 MG/ML SYR ONE (14:38)
[2025-03-13 16:33] VITALS: O2SAT 97
--- NOTE | 2025-03-13 17:11 | P.PN ---
Date of Service: 03/13/25 Subjective: S/P laparoscopic cholecystectomy Doing well postoperatively No acute events ROS: 10 point ROS as noted above, otherwise negative Physical exam GEN: Alert, oriented, NAD HEENT: Normal conjunctiva, sclera anicteric CV: Regular rate and rhythm, no edema Pulm: Nonlabored respirations on room air ABD: Soft, nontender, nondistended MSK: No joint tenderness Integumentary: No rashes Neuro: Normal speech, normal affect Vitals reviewed Assessment: Acute cholecystitis S/p laparoscopic cholecystectomy 03/13 Hypertension Hyperlipidemia Gout Plan: Acute cholecystitis S/p laparoscopic cholecystectomy 03/13 Doing well postop Continue to monitor overnight As needed pain medications and antiemetics Hypertension Hyperlipidemia Gout Continue home medications, parameters in place for carvedilol regards to heart rate DVT PPX: SCD Code status: Full code Discharge Plan: Home Plan to discharge in: 24 Hours Time Spent Managing Pts Care (In Minutes): 35
[2025-03-13] MEDS: HYDROCODONE/APAP 5/325 MG TAB PO PRN (17:42)
[2025-03-14 07:12] LABS: Absolute Lymphocytes (CBC) 1.3 K/uL (0.7-4.9); Hematocrit 40.6 % (39.6-49.0); Hemoglobin 13.8 g/dL (13.6-17.9); MCH 29.7 pg (27.0-35.0); MCHC 33.8 g/dL (32.0-36.0); MCV 87.8 fL (80-100); MPV 8.9 fL (7.6-11.3); Nucleated RBC Absolute Count 0.0 (0-0); Nucleated Red Blood Cells % 0.0 % (0-0); RBC Red Blood Cell Count 4.63 M/uL (4.33-5.43); White Blood Count 10.10 thou/uL (4.3-10.9)
[2025-03-14 07:40] LABS: ALT/SGPT 53.0 U/L (16-61); AST/SGOT 40.0 U/L (15-37); Albumin 3.3 g/dL (3.4-5.0); Albumin/Globulin Ratio 1.1 (1.1-1.8); Alkaline Phosphatase 63.0 U/L (45-117); Anion Gap 9.4 mEq/L (5.0-15.0); BUN Blood Urea Nitrogen 13.0 mg/dL (7-18); Globulin 2.9 g/dL (2.3-3.5); Glucose Level 108.0 mg/dL (74-106); Potassium 4.4 mEq/L (3.5-5.1)
--- NOTE | 2025-03-14 10:19 | P.DS ---
Admission Date: 03/13/25 Discharge Date: 03/14/25 Disposition: ROUTINE DISCHARGE Discharge Condition: GOOD Brief History of Present Illness: 50-year-old male with history of hypertension, hyperlipidemia, gout presents the emergency department chief complaint of epigastric pain. He has been dealing with issues with his gallbladder over the course of the last 1 and half years but the episodes becoming more frequent and worse in severity. He has been seeing Dr. Hernandez outpatient, he recently had an abdominal ultrasound on 03/05 which showed extensive cholelithiasis, MRCP was performed yesterday on 03/11 which showed no pathologic biliary tree dilatation, cholelithiasis. Gallbladder appears contracted partially. Labs were obtained in the ER which showed normal LFTs and were otherwise essentially unremarkable. Given his severe ongoing pain he will be admitted for suspected acute cholecystitis with plan for operative management. Hospital Course: Assessment: Acute cholecystitis S/p laparoscopic cholecystectomy 03/13 Hypertension Hyperlipidemia Gout Patient was admitted to the hospital for acute cholecystitis, he underwent laparoscopic cholecystectomy on 03/13 and has done well postoperatively. He does have a KOJO drain in place and will follow-up with Dr. Hernandez on Tuesday 03/20 for removal. Prescriptions for pain medications and antibiotic sent to his pharmacy. In addition we did discuss his blood pressure which is persistently elevated at home. We will provide information for him to follow-up with Dr. Coley local field underwriter. Of note his heart rate was in the mid to high 40s upon arrival to the ED, he does take carvedilol at home. Recommend holding carvedilol if heart rate is less than 60 in the mornings. Please follow-up with Dr. Hernandez on Tuesday 03/20 Follow-up with cardiology in regards to blood pressure/heart rate in 1 to 2 weeks Vital Signs/Physical Exam: Temp Pulse Resp BP Pulse Ox 98.6 F 67 16 180/92 H 97 03/14/25 08:00 03/14/25 08:49 03/14/25 10:06 03/14/25 08:49 03/14/25 10:06 General: Alert, In no apparent distress, Oriented x3 HEENT: Atraumatic, PERRLA Neck: Supple, JVD not distended Respiratory: Clear to auscultation bilaterally, Normal air movement Cardiovascular: Regular rate/rhythm, Normal S1 S2 Gastrointestinal: Other (KOJO drain in place) Musculoskeletal: No tenderness Integumentary: No rashes Neurological: Normal speech, Normal affect Laboratory Data at Discharge: WBC 10.10 thou/uL (4.3-10.9) 03/14/25 06:32 Hgb 13.8 g/dL (13.6-17.9) 03/14/25 06:32 Hct 40.6 % (39.6-49.0) 03/14/25 06:32 Plt Count 173 thou/uL (152-406) 03/14/25 06:32 Sodium 137 mEq/L (136-145) 03/14/25 06:32 Potassium 4.4 mEq/L (3.5-5.1) 03/14/25 06:32 BUN 13 mg/dL (7-18) 03/14/25 06:32 Creatinine 1.32 mg/dL (0.70-1.30) H 03/14/25 06:32 Glucose 108 mg/dL (74-106) H 03/14/25 06:32 Total Bilirubin 1.6 mg/dL (0.2-1.0) H 03/14/25 06:32 AST 40 U/L (15-37) H 03/14/25 06:32 ALT 53 U/L (16-61) 03/14/25 06:32 Alkaline Phosphatase 63 U/L (45-117) 03/14/25 06:32 Lipase 42 U/L (13-75) 03/12/25 09:00 Home Medications: Carvedilol [Coreg] 1 tab PO BID 03/12/25 lisinopriL [Lisinopril] 1 tab PO DAILY 03/12/25 Amox/Clavulanate [Augmentin 875-125 Tab] 875 mg PO BID 5 Days #10 tab 03/14/25 Hydrocodone 5/APAP 325 [[place] 5/325] 1 tab PO Q6H PRN #15 tab 03/14/25 New Medications: Amox/Clavulanate [Augmentin 875-125 Tab] 875 mg PO BID 5 Days #10 tab Hydrocodone 5/APAP 325 [[place] 5/325] 1 tab PO Q6H PRN #15 tab PRN Reason: Pain Physician Discharge Instructions: Patient was admitted to the hospital for acute cholecystitis, he underwent laparoscopic cholecystectomy on 03/13 and has done well postoperatively. He does have a KOJO drain in place and will follow-up with Dr. Hernandez on Tuesday 03/20 for removal. Prescriptions for pain medications and antibiotic sent to his pharmacy. In addition we did discuss his blood pressure which is persistently elevated at home. We will provide information for him to follow-up with Dr. Coley local field underwriter. Of note his heart rate was in the mid to high 40s upon arrival to the ED, he does take carvedilol at home. Recommend holding carvedilol if heart rate is less than 60 in the mornings. Please follow-up with Dr. Hernandez on Tuesday 03/20 Follow-up with cardiology in regards to blood pressure/heart rate in 1 to 2 weeks Diet: [place] Activity: Ad ramila Followup: Tal Hernandez MD [ACTIVE - CAN ADMIT] - 03/20/25 Panfilo Coley MD [ACTIVE - CAN ADMIT] - 1-2 Weeks Mohsen Escalona FNP [Primary Care Provider] - 1 Week Time spent managing pt's care (in minutes): 38
[2025-03-14 13:53] VITALS: BP 120/74; TEMP 98.5
== END 2025-03-14 14:46 | disposition home or self-care (01) | DRG 419 ==
LOC: ER 08:44 → ERHOLD 10:07 → 4TH 12:01 → OBSVTOIN 03-13 17:08
PROVIDERS: ADMIT Hospitalist; ATTEND Hospitalist
PROC: 0DNW4ZZ Release Peritoneum, Percutaneous Endoscopic Approach (ICD-10-PCS; 2025-03-13)
PROC: 0FT44ZZ Resection of Gallbladder, Percutaneous Endoscopic Approach (ICD-10-PCS; principal; 2025-03-13 13:00)
DX: K80.00 Calculus of gallbladder with acute cholecystitis without obstruction (principal); K66.0 Peritoneal adhesions (postprocedural) (postinfection); I10 Essential (primary) hypertension; Z79.899 Other long term (current) drug therapy; M1A.9XX0 Chronic gout, unspecified, without tophus (tophi); E78.5 Hyperlipidemia, unspecified; Z87.891 Personal history of nicotine dependence; Z79.891 Long term (current) use of opiate analgesic
CPT/HCPCS: 36415; 80053; 80076; 83690; 85025; 88304; 94010; 96361; 96365; 96375; 99285; G0378; J0360; J1171; J2003; J2250; J2270; J2405; J2543; J2704; J2710; J3010; J7030